=== PATIENT | male | born 1950 | race Hispanic/Latino ===

== ENCOUNTER 2016-03-25 21:48 | Emergency (ER) | payer MEDICAID, MEDICARE ==
[~2016-03-25] VITALS: Ht 175.3 cm; Wt 95.5 kg
--- NOTE | 2016-03-25 21:50 | ED.REPORT ---
HPI-Burn/Elec Inj Date of Service Mar 25, 2016 ED Provider: Nursing Notes Stated Complaint: SUPERFICIAL WEST Allergies: Coded Allergies: No Known Allergies (Verified , 03/25/16) General Time Seen by MD: 21:50 Past Medical History Past Medical History Poor dentition Reports: Diabetes mellitus, Hypertension Past Surgical History Denies Smoking History Current Some Day Smoker Social History Alcohol Use: >5 per day Ambulatory Status Independent Physical Exam Initial Vital Signs Vital Signs (First) Date Time Temp Pulse Resp B/P Pulse Ox O2 Delivery O2 Flow Rate FiO2 03/25/16 22:00 36.9 70 18 159/100 98 Nasal Cannula 2 Interpretation & Diagnostics Lab Results Interpretation Result Diagram: 03/25/16212903/25/162129 Test 03/25/16 21:30 White Blood Count 13.3th/mm3 (3.8-10.1) Red Blood Count 4.63mil/mm3 (4.40-5.80) Hemoglobin 14.3g/dL (13.8-17.2) Hematocrit 42.4% (41.0-50.0) Mean Corpuscular Volume 91.6fL (81-100) Mean Corpuscular Hemoglobin 30.9pg (27.0-35.0) Mean Corpuscular Hemoglobin Concent 33.7% (32.0-37.0) Red Cell Distribution Width 13.8% (12.3-15.4) Platelet Count 279bil/L (150-400) Neutrophils (%) (Auto) 49.7% (40-74) Lymphocytes (%) (Auto) 42.0% (14-46) Monocytes (%) (Auto) 7.4% (4-12) Eosinophils (%) (Auto) 0.3% (0-5) Basophils (%) (Auto) 0.2% (0-3) Hold Purple Top Tube Received (Received) Prothrombin Time 10.6sec (8.1-12.5) Prothromb Time International Ratio 0.99ratio Hold Blue Top Tube Received (Received) Sodium Level 137mEq/L (134-144) Potassium Level 3.0mEq/L (3.5-5.2) Chloride Level 96mEq/L (97-108) Carbon Dioxide Level 16mmol/L (18-29) Blood Urea Nitrogen 12mg/dL (8-27) Creatinine 0.71mg/dL (0.76-1.27) Estimat Glomerular Filtration Rate 118mL/min (>59) Glucose Level 144mg/dL (60-99) Calcium Level 9.1mg/dL (8.5-10.1) Magnesium Level 1.6mg/dL (1.6-2.6) Total Bilirubin 0.3mg/dL (0.0-1.2) Aspartate Amino Transf (AST/SGOT) 30U/L (0-50) Alanine Aminotransferase (ALT/SGPT) 34U/L (0-44) Alkaline Phosphatase 55U/L (25-160) Total Protein 7.7g/dL (6.4-8.4) Albumin 4.5g/dL (3.4-5.0) Hold Red Top Tube Received (Received) Hold [place] Top Tube Received (Received) Alcohol, Quantitative < 10mg/dL (0-10) Discharge & Departure Referrals: NOPCP (PCP) Radha Catherine MD Mar 25, 2016 21:50 Denise Dye Mar 25, 2016 22:38
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
[2016-03-25] MEDS ORDERED: 0.9% Sodium Chloride 1,000 ML IV ONE (21:55)
[2016-03-25] MEDS ORDERED: Ketorolac 15 mg/mL Inj IVPUSH ONE (21:55)
[2016-03-25 22:00] VITALS: BP 159/100; PULSE 70; RESP 18; O2SAT 98
[2016-03-25 22:06] LABS: BASOPHILS % (AUTO) 0.2 % (0-3); EOSINOPHILS % (AUTO) 0.3 % (0-5); MONOCYTES % (AUTO) 7.4 % (4-12); Mean Corpuscular Hemoglobin 30.9 pg (27.0-35.0); Mean Corpuscular Volume 91.6 fL (81-100); NEUTROPHILS % (AUTO) 49.7 % (40-74); Platelet Count 279 bil/L (150-400)
[2016-03-25] MEDS ORDERED: Lidocaine 2% 6mL Topical Jelly ONE ×2 (22:20→22:43)
[2016-03-25 22:21] LABS: INR 0.99 ratio
[2016-03-25 22:25] LABS: Magnesium 1.6 mg/dL (1.6-2.6)
[2016-03-25] MEDS ORDERED: Potassium Chloride 20 mEq SR Tablet PO ONE (22:30)
[2016-03-25 23:30] LABS: APPEARANCE,URINE CLEAR (CLEAR,HAZY); COLOR,URINE YELLOW (YELLOW); OCCULT BLOOD,URINE SMALL (NEGATIVE); PH,URINE 6.5 (5.0-8.0); UROBILINOGEN,URINE NORMAL (NORMAL)
[2016-03-26 01:13] VITALS: BP 179/80; PULSE 93; RESP 19; O2SAT 98
[2016-03-26 01:29] VITALS: BP 138/79; PULSE 88; RESP 18; O2SAT 97
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
== END 2016-03-26 01:30 | disposition home or self-care (01) ==
LOC: SED 21:48
DX: T23.202A Burn of second degree of left hand, unspecified site, initial encounter (principal); T24.201A Burn of second degree of unspecified site of right lower limb, except ankle and foot, initial encounter; T21.14XA Burn of first degree of lower back, initial encounter; T31.0 Burns involving less than 10% of body surface; X08.8XXA Exposure to other specified smoke, fire and flames, initial encounter; Y93.89 Activity, other specified; Y92.9 Unspecified place or not applicable; Y99.8 Other external cause status; I10 Essential (primary) hypertension; E11.9 Type 2 diabetes mellitus without complications; I25.10 Atherosclerotic heart disease of native coronary artery without angina pectoris; F17.200 Nicotine dependence, unspecified, uncomplicated
CPT/HCPCS: 36415; 71010; 80053; 81001; 83735; 85025; 85610; 93005; 96361; 96374; 99285; G0480; J1885; J7030